=== PATIENT | female | born 1940 | race Caucasian/White ===

== ENCOUNTER → 2018-11-16 14:59 | Outpatient (CLI) | payer MEDICARE, SELFPAY ==
--- NOTE | 2018-11-16 15:09 | XR_ITS ---
XR chest 2V HISTORY: Shortness of breath ITS.REASON: z ORDERING PHYSICIAN: Mario Brown MD PATIENT AGE: 78 years COMPARISON: None FINDINGS: The heart size is unremarkable. There is a stent graft within the distal aortic arch and proximal descending thoracic aorta. Parenchymal opacity is present in the left midlung and could be due to an area of scarring. There are no previous studies available for comparison there is also some increased density in the left suprahilar region nonspecific. There is a right IJ Mediport catheter present with the tip in the region of the superior vena cava. There has been prior vertebral plasty at T5 T6 T7. IMPRESSION: Chronic changes with aortic stent graft and Mediport catheter present. There is some prominence of the left hilum nonspecific and patchy parenchymal density in the left midlung which could be due to an area of versus atelectasis or infiltrate. Suggest follow-up to confirm stability of the above-mentioned abnormalities
[2018-11-16 15:11] LABS: Basophils % 0.9 % (0.1-2.0); Eosinophils % 0.6 % (0.1-12.0); Hematocrit 33.8 % (37.0-47.0); Hemoglobin 10.6 g/dL (12.2-16.2); Lymphocytes # 1.9 K/mm3 (0.7-4.5); Lymphocytes % 43.3 % (10-50); Mean Corpuscular HGB Conc 31.3 g/dL (31.8-35.4); Mean Corpuscular Hemoglobin 37.1 pg (27.0-31.2); Mean Corpuscular Volume 118.4 fl (81-99); Monocytes # 0.3 K/mm3 (0.1-1.0); Monocytes % 7.2 % (1.7-9.3); Neutrophils # 2.1 K/mm3 (1.8-7.8); Platelet Count 342 K/mm3 (142-424); Red Blood Count 2.85 M/mm3 (4.20-5.40); White Blood Count 4.3 K/mm3 (4.8-10.8)
[2018-11-16 18:36] LABS: Anion Gap 17.4 mEq/L (5-15); Blood Urea Nitrogen 43 mg/dL (7-18); Carbon Dioxide 24 mmol/L (21.0-32.0); Chloride 105 mmol/L (98-107); Creatinine,Serum 2.81 mg/dL (0.55-1.02); Estimated Glomerular Filt Rate 16 ml/min (>60); GFR (African American) 20 ML/MIN (>60); Glucose 87 mg/dL (74-106); Potassium 5.4 mmoL/L (3.5-5.1); Sodium 141 mmol/L (136-145)
== END ==
PROVIDERS: Visit Provider Internal Medicine
DX: I11.9 Hypertensive heart disease without heart failure (principal); I25.10 Atherosclerotic heart disease of native coronary artery without angina pectoris; R05 Cough; R06.02 Shortness of breath; G89.29 Other chronic pain; M54.9 Dorsalgia, unspecified
CPT/HCPCS: 36415; 71046; 80048; 83880; 85025

== ENCOUNTER → 2018-12-12 13:40 | Outpatient (CLI) | payer MEDICARE, SELFPAY ==
[2018-12-12 15:05] LABS: Anion Gap 17.3 mEq/L (5-15); Blood Urea Nitrogen 47 mg/dL (7-18); Calcium 9.2 mg/dL (8.5-10.1); Carbon Dioxide 24 mmol/L (21.0-32.0); Chloride 105 mmol/L (98-107); Creatinine,Serum 2.81 mg/dL (0.55-1.02); Estimated Glomerular Filt Rate 16 ml/min (>60); GFR (African American) 20 ML/MIN (>60); Glucose 98 mg/dL (74-106); Potassium 4.3 mmoL/L (3.5-5.1); Sodium 142 mmol/L (136-145)
== END ==
PROVIDERS: Visit Provider Nurse Practitioner Family
DX: N18.4 Chronic kidney disease, stage 4 (severe) (principal); E87.5 Hyperkalemia
CPT/HCPCS: 36415; 80048

== ENCOUNTER → 2019-02-20 11:48 | Outpatient (CLI) | payer MEDICARE, SELFPAY ==
[2019-02-20 12:45] LABS: Amphetamine/Metha Screen,Urine Negative ng/mL (<1000); Barbiturates Screen,Urine Negative ng/mL (<200); Benzodiazepines Screen,Urine Negative ng/mL (<200); Cannabinoid Screen,Urine Negative ng/mL (<50); Cocaine Screen,Urine Negative ng/mL (<300); Methadone Screen,Urine Negative ng/mL (<300); Opiate Screen,Urine Positive ng/mL (<300); Phencyclidine Screen,Urine Negative ng/mL (<25)
== END ==
PROVIDERS: Visit Provider Internal Medicine
DX: G89.29 Other chronic pain (principal)
CPT/HCPCS: 80305